=== PATIENT | male | born 1975 | race Caucasian/White ===

== ENCOUNTER 2022-07-18 11:52 | Emergency (ER) | payer OTHER ==
[~2022-07-18] VITALS: Ht 193 cm; Wt 86.4 kg
[~2022-07-18 11:52] MED LIST: FLUO20CA36 PO; GABA-1181 PO; LAMO100 PO; TRAZ150T80 PO
[2022-07-18] MEDS ORDERED: MELO-381 PO (12:04)
[2022-07-18] MEDS ORDERED: CHOL25TA4 PO (12:04)
[2022-07-18] MEDS ORDERED: LUMA42CA PO (12:04)
[2022-07-18 12:48] LABS: BASOPHILS % (AUTO) 0.7 % (0.0-2.0); EOSINOPHILS % (AUTO) 1.6 % (1.0-6.0); HEMATOCRIT 41.1 % (41-53); HEMOGLOBIN 13.7 g/dL (13.5-17.5); LYMPHOCYTES # (AUTO) 1.8 K/uL (1.0-4.8); LYMPHOCYTES % (AUTO) 21.8 % (22.0-44.0); MEAN CORPUSCULAR HEMOGLOBIN 31.9 pg (26.0-34.0); MEAN CORPUSCULAR HGB CONC 33.3 G/dL (31.0-37.0); MEAN CORPUSCULAR VOLUME 96 fL (80-100); MONOCYTES # (AUTO) 0.7 K/uL (0.1-1.0); MONOCYTES % (AUTO) 8.7 % (2.0-9.0); NEUTROPHILS # (AUTO) 5.4 K/uL (1.8-7.7); NEUTROPHILS % (AUTO) 67.2 % (40.0-70.0); PLATELET COUNT (AUTO) 244 K/uL (150-450); RED BLOOD CELL COUNT(AUTO) 4.28 MIL/uL (4.50-5.90); RED CELL DISTRIBUTION WIDTH 13.7 % (11.5-14.5)
[2022-07-18 13:29] LABS: ANION GAP 10 mmol/L (8-16); CALCIUM, TOTAL 9.4 mg/dL (8.8-10.5); CARBON DIOXIDE 28 mmol/L (22-29); CHLORIDE 100 mmol/L (98-107); CREATININE 0.95 mg/dL (0.60-1.30); GLOMERULAR FILTR. RATE CALC > 60 mL/min (>60); GLUCOSE,RANDOM 112 mg/dL (70-110); POTASSIUM 4.7 mmol/L (3.5-5.1); SODIUM SERUM 138 mmol/L (136-145); UREA NITROGEN, BLOOD 11 mg/dL (7-18)
[2022-07-18 13:34] LABS: ALANINE AMINOTRANSFERASE 51 U/L (12-78); ALBUMIN 4.4 g/dL (3.4-5.0); ALKALINE PHOSPHATASE 55 U/L (46-116); ASPARTATE AMINOTRANSFERASE 43 U/L (15-37); BILIRUBIN,TOTAL 0.4 mg/dL (0.1-1.0); TOTAL PROTEIN, SERUM 8.2 g/dL (6.4-8.2)
[2022-07-18 14:18] VITALS: BP 128/91
== END 2022-07-18 14:24 | disposition home or self-care (01) ==
LOC: EMS 11:52
DX: R51.9 Headache, unspecified (principal); F41.9 Anxiety disorder, unspecified; F31.9 Bipolar disorder, unspecified; R56.9 Unspecified convulsions
CPT/HCPCS: 70450; 71045; 80053; 84484; 85025; 93005; 99285; 36415-L1; 36415-TC

== ENCOUNTER 2023-02-08 14:41 | Emergency (ER) | payer OTHER ==
[~2023-02-08] VITALS: Ht 193 cm; Wt 90.9 kg
[~2023-02-08 14:41] MED LIST changes: +CHOL25TA4 PO; +LAMO-24 PO; -LAMO100 PO; +LUMA42CA PO; +MELO-381 PO
[2023-02-08 14:47] VITALS: TEMP 98.5
[2023-02-08] MEDS ORDERED: HYDR25TA2 PO (14:53)
[2023-02-08] MEDS ORDERED: MELO-108 PO (14:53)
[2023-02-08] MEDS ORDERED: CHOL20002 PO (14:53)
[2023-02-08] MEDS ORDERED: LAMO200T51 PO (14:53)
[2023-02-08] MEDS ORDERED: TRAZ150T80 PO (14:53)
[2023-02-08] MEDS ORDERED: CLON0.5T4 PO (14:53)
[2023-02-08 17:04] VITALS: BP 105/52; PULSE 80; RESP 18
== END 2023-02-08 20:00 | disposition home or self-care (01) ==
LOC: EMS 14:41
DX: S82.402A Unspecified fracture of shaft of left fibula, initial encounter for closed fracture (principal); F41.9 Anxiety disorder, unspecified; F31.9 Bipolar disorder, unspecified; Z98.890 Other specified postprocedural states; W19.XXXA Unspecified fall, initial encounter; Y93.89 Activity, other specified; Y92.89 Other specified places as the place of occurrence of the external cause; Y99.8 Other external cause status
CPT/HCPCS: 29505; 99283

== ENCOUNTER 2024-03-30 14:35 | Emergency (ER) | payer OTHER ==
[~2024-03-30] VITALS: Ht 193 cm; Wt 84.1 kg
[~2024-03-30 14:35] MED LIST changes: +CHOL20002 PO; -CHOL25TA4 PO; +CLON0.5T4 PO; +FLUO-418 PO; -FLUO20CA36 PO; +HYDR25TA2 PO; -LAMO-24 PO; +LAMO200T51 PO; -LUMA42CA PO; +MELO-108 PO; -MELO-381 PO
[2024-03-30 14:44] VITALS: TEMP 97.9
[2024-03-30] MEDS ORDERED: [UNRECOGNIZED DRUG - CODE] SQ (14:45)
[2024-03-30 17:00] VITALS: BP 118/65; PULSE 68; RESP 16; O2SAT 94
== END 2024-03-30 17:37 | disposition home or self-care (01) ==
LOC: EMS 14:35
DX: M70.22 Olecranon bursitis, left elbow (principal); F31.9 Bipolar disorder, unspecified; F41.9 Anxiety disorder, unspecified; G89.29 Other chronic pain; L40.50 Arthropathic psoriasis, unspecified; Z98.890 Other specified postprocedural states
CPT/HCPCS: 99282; Z7502

== ENCOUNTER 2025-04-17 15:14 | Emergency (ER) | payer OTHER ==
[~2025-04-17] VITALS: Ht 182.9 cm; Wt 79.5 kg
[~2025-04-17 15:14] MED LIST changes: +CLON-592 PO; -CLON0.5T4 PO; +FOLI-130 PO; -HYDR25TA2 PO; +LAMO-24 PO; -LAMO200T51 PO; +METH2.5T6 PO; +SECU150P SQ; +TRAZ-283 PO; -TRAZ150T80 PO
[2025-04-17] MEDS ORDERED: TRAZ150T80 PO (16:08)
[2025-04-17] MEDS ORDERED: LAMO25TA72 PO (16:08)
[2025-04-17] MEDS ORDERED: LAMO300T2 PO (16:08)
[2025-04-17 16:22] LABS: PLATELET COUNT (AUTO) 312 K/uL (150-450); RED BLOOD CELL COUNT(AUTO) 4.50 MIL/uL (4.50-5.90); RED CELL DISTRIBUTION WIDTH 13.4 % (11.5-14.5); WHITE BLOOD COUNT (AUTO) 7.6 K/uL (4.5-11.0)
[2025-04-17 16:24] LABS: CALCIUM, TOTAL 9.3 mg/dL (8.8-10.5); CREATININE 0.94 mg/dL (0.60-1.30); GLOMERULAR FILTR. RATE CALC > 60 mL/min (>60); GLUCOSE,RANDOM 86 mg/dL (70-110); SODIUM SERUM 140 mmol/L (136-145); UREA NITROGEN, BLOOD 13 mg/dL (7-18)
[2025-04-17 16:34] LABS: TROPONIN I-HIGH SENSITIVITY 7 ng/L (<76)
[2025-04-17 17:41] VITALS: BP 133/95; PULSE 82; RESP 18; TEMP 97.9; O2SAT 98
[2025-04-17] MEDS: BACITRACIN 0.9 GM PACKET OINTMENT TP ONE (18:33)
[2025-04-17] MEDS: MELOXICAM 7.5 MG TABLET PO ONE (18:33)
== END 2025-04-17 18:44 ==
LOC: EMS 15:14
DX: Z02.89 Encounter for other administrative examinations (principal); F41.9 Anxiety disorder, unspecified; F31.9 Bipolar disorder, unspecified; Z79.899 Other long term (current) drug therapy; Z79.1 Long term (current) use of non-steroidal anti-inflammatories (NSAID)
CPT/HCPCS: 99285; 71045; 80048; 84484; 85025; 36415; 93005; G0480